=== PATIENT | female | born 1965 | race African-American/Black ===

== ENCOUNTER 2019-04-07 17:10 | Emergency (ER) | payer MEDICAID ==
[~2019-04-07] VITALS: Ht 170.2 cm; Wt 116.8 kg
[2019-04-07] MEDS ORDERED: IV NORMAL SALINE 1,000ML 1,000 ML IV ONE (17:45)
--- NOTE | 2019-04-07 17:52 | PHYS DOC ---
Past History Past Medical History: Anxiety, CAD, Depression, Diabetes, High Cholesterol, Hypertension, [place] (RADHA OBRIEN DO) Past Surgical History: Appendectomy, Cholecystectomy, Hysterectomy, Other Additional Past Surgical Histo: stents x2 (RADHA OBRIEN DO) Smoking: Cigarettes (1 pack per day) Alcohol Use: None Drug Use: None (RADHA OBRIEN DO) Adult General Chief Complaint Chief Complaint: BLOOD SUGAR PROBLEM HPI HPI Patient is a 54-year-old female who presents with abdominal pain and high blood sugars. She states she began having abdominal pain about a week and a half ago and describes the pain as a constant dull ache that varies in severity. She currently rates this pain as a 6 out of 10. She has also had nausea since last week, but no vomiting. She says that she "feels like her blood sugars have been high for the past few days". The last time she had her blood sugar drawn was last Wednesday at a doctor's visit and according to patient "it was around 450". She says that last week she minute 2-3 doses of her diabetes medication. She is currently on Janumet, Levemir, Lantus, and Humalog. She was recently diagnosed with bronchitis and was on Bactrim and prednisone. She has been off prednisone for about a week. She continues to have cough with production of clear sputum, but has not had any wheezing. She denies fevers and chills, but she has had night sweats. She also notes that she has a headache and has been constipated and last bowel movement was a couple days ago. (RADHA OBRIEN DO) Review of Systems Review of Systems Constitutional: Reports nights sweats, Denies fever or chills Eyes: Denies redness or eye pain HENT: Denies nasal congestion or sore throat Respiratory: Reports cough with production of clear sputum, Denies shortness of breath Cardiovascular: Denies chest pain or palpitations GI: Reports abdominal pain and nausea, denies vomiting : Denies dysuria or hematuria Musculoskeletal: Denies back pain or joint pain Integument: Denies rash or skin lesions Neurologic: Reports headache and numbness/tingling of hands and feet, Denies focal weakness or sensory changes Complete systems were reviewed and found to be within normal limits, except as documented in this note. (RADHA OBRIEN DO) Current Medications Current Medications Current Medications Medications (Trade) Dose Ordered Sig/Thai Start Time Stop Time Status Last Admin Dose Admin Sodium Chloride 1,000 ml @ 1,000 mls/hr 1X ONCE 04/07/19 17:45 04/07/19 18:44 (RADHA OBRIEN DO) Allergies Allergies Allergies Coded Allergies Type Severity Reaction Last Updated Verified No Known Drug Allergies 04/07/19 No (RADHA OBRIEN DO) Physical Exam Physical Exam Constitutional: Well developed, well nourished, no acute distress, non-toxic appearance HENT: Normocephalic, atraumatic, oropharynx moist Eyes: EOMI, conjunctiva normal, no discharge Neck: Normal range of motion, supple Cardiovascular: Heart rate normal, regular rhythm Lungs & Thorax: Bilateral breath sounds clear to auscultation, no wheezing Abdomen: Soft, no tenderness to palpation Skin: Warm, dry, no erythema, no rash Extremities: No tenderness, ROM intact, no edema Neurologic: Alert and oriented X 3, normal motor function, normal sensory function, no focal deficits noted Psychologic: Affect normal, judgment normal (RADHA OBRIEN DO) Current Patient Data Vital Signs Vital Signs Date Time Temp Pulse Resp B/P (MAP) Pulse Ox O2 Delivery O2 Flow Rate FiO2 04/07/19 17:38 92 18 157/91 (113) 100 Lab Results Laboratory Tests Test 04/07/19 17:19 Glucose (Fingerstick) 368 mg/dL (70-99) H (RADHA OBRIEN DO) EKG EKG [] (RADHA OBRIEN DO) Radiology/Procedures Radiology/Procedures [] (RADHA OBRIEN DO) Course & Med Decision Making Course & Med Decision Making Pertinent Labs reviewed. (See chart for details) Patient is a 54-year-old female who presents to the ED with abdominal pain and hyperglycemia. Blood glucose in the ED was 368. Labs were obtained and are pendi ng. Symptomatic treatment provided. Sign out was given to Dr. Cardoso for further work up and final disposition. Discussed current findings and plan with patient, who acknowledges understanding and agreement. (RADHA OBRIEN DO) Course & Med Decision Making Pt. electing discharge. Risk and benefits discussed. Pt. Exhibits [employer] capacity. Must follow up with primary. Return if any concerns. Impression; 1. Elevated Glucose 2. Hx. DM 3. Hx. Recent tx. of Bronchitis 4. Mild Dehydration (IKER CARDOSO MD) Dragon Disclaimer Dragon Disclaimer This electronic medical record was generated, in whole or in part, using a voice recognition dictation system. (RADHA OBRIEN DO) Departure Departure: Impression: Primary Impression: Malaise Additional Impression: Hyperglycemia Disposition: HOME/RESIDENCE PRIOR TO ADM Condition: STABLE Referrals: DMITRI BLISS MD (PCP) Dragon Disclaimer This chart was dictated in whole or in part using Voice Recognition software in a busy, high-work load, and often noisy Emergency Department environment. It may contain unintended and wholly unrecognized errors or omissions. (IKER CARDOSO MD) Dragon Disclaimer This chart was dictated in whole or in part using Voice Recognition software in a busy, high-work load, and often noisy Emergency Department environment. It may contain unintended and wholly unrecognized errors or omissions. (IKER CARDOSO MD) Problem Qualifiers RADHA OBRIEN DO Apr 07, 2019 17:52 IKER CARDOSO MD Apr 07, 2019 20:05
[2019-04-07 17:58] LABS: BASO # 0.1 x10^3/uL (0.0-0.2); BASO % 1 % (0-3); EOS # 0.1 x10^3/uL (0.0-0.7); EOS % 1 % (0-3); HEMATOCRIT 46.6 % (36.0-47.0); HEMOGLOBIN 15.3 g/dL (12.0-15.5); LYMPH # 2.3 x10^3/uL (1.0-4.8); LYMPH % 31 % (24-48); MEAN CORPUSCULAR HEMOGLOBIN 30 pg (25-35); MEAN CORPUSCULAR HGB CONC 33 g/dL (31-37); MEAN CORPUSCULAR VOLUME 90 fL (79-100); MONO # 0.5 x10^3/uL (0.0-1.1); MONO % 7 % (0-9); NEUT # 4.5 x10^3uL (1.8-7.7); NEUT % 60 % (31-73); PLATELET COUNT 266 x10^3/uL (140-400); RED BLOOD COUNT 5.16 x10^6/uL (3.50-5.40); RED CELL DISTRIBUTION WIDTH 14.3 % (11.5-14.5); WHITE BLOOD COUNT 7.4 x10^3/uL (4.0-11.0)
[2019-04-07] MEDS ORDERED: ONDANSETRON PF 4 MG/2 ML VIAL. IVP ONE (18:15)
[2019-04-07] MEDS ORDERED: FAMOTIDINE 20 MG/2 ML VIAL IVP ONE (18:15)
[2019-04-07 18:18] LABS: CALCIUM 9.3 mg/dL (8.5-10.1); CREATININE 0.7 mg/dL (0.6-1.0); GFR 104.7; POTASSIUM 3.4 mmol/L (3.5-5.1)
[2019-04-07 18:24] LABS: ALBUMIN 3.2 g/dL (3.4-5.0); ALBUMIN/GLOBULIN RATIO 0.8 (1.0-1.7); MAGNESIUM 1.8 mg/dL (1.8-2.4); TOTAL BILIRUBIN 0.2 mg/dL (0.2-1.0); TOTAL PROTEIN 7.3 g/dL (6.4-8.2)
[2019-04-07] MEDS ORDERED: INSULIN REGULAR 100 UNIT/ML 3ML VIAL. IV ONE (19:00)
[2019-04-07 19:56] LABS: BILIRUBIN,URINE NEG (NEG); CLARITY,URINE CLEAR; COLOR,URINE YELLOW; GLUCOSE,URINE 500 mg/dL (NEG)
[2019-04-07 19:57] LABS: BACTERIA,URINE FEW /HPF (0-FEW); NITRITE,URINE NEG (NEG); SQUAMOUS EPITHELIAL CELL,UR MOD /LPF; UROBILINOGEN,URINE 0.2 mg/dL (0.2 mg/dL); WBC,URINE OCC /HPF (0-4)
[2019-04-07 20:05] VITALS: BP 143/80
== END 2019-04-07 20:07 | disposition home or self-care (01) ==
LOC: ER 17:10
DX: R53.81 Other malaise (principal); E11.65 Type 2 diabetes mellitus with hyperglycemia; E78.00 Pure hypercholesterolemia, unspecified; I10 Essential (primary) hypertension; I25.2 Old myocardial infarction; F41.9 Anxiety disorder, unspecified; I25.10 Atherosclerotic heart disease of native coronary artery without angina pectoris; F17.210 Nicotine dependence, cigarettes, uncomplicated; Z90.49 Acquired absence of other specified parts of digestive tract; Z90.89 Acquired absence of other organs; Z90.710 Acquired absence of both cervix and uterus
CPT/HCPCS: 36415; 80053; 81001; 82010; 82947; 83735; 85025; 96361; 96374; 96375; 99284; J1815; J2405; J3490; J7030